=== PATIENT | male | born 1950 | race Two or more races ===

== ENCOUNTER 2019-11-30 00:37 | Inpatient (IN) | payer OTHER ==
[~2019-11-30] VITALS: Ht 175.3 cm; Wt 77.7 kg
[2019-11-30 02:25] LABS: Basophils # (auto) 0.1 10 ^3/uL (0-0.2); Basophils % (auto) 1.2 % (0.0-2.0); Eosinophils # (auto) 0.3 10 ^3/uL (0-0.8); Eosinophils % (auto) 3.9 % (0.0-7.0); Hematocrit 42.3 % (41.0-53.0); Hemoglobin 14.3 g/dL (13.5-17.5); Lymphocytes % (auto) 11.6 % (10.0-50.0); Mean Corpuscular Hemoglobin 31.7 pg (28.0-32.0); Mean Corpuscular Hgb Conc. 33.8 g/dL (32.0-36.0); Mean Corpuscular Volume 93.9 fL (80.0-100.0); Monocytes # (auto) 0.7 10 ^3/uL (0-1.3); Monocytes % (auto) 8.7 % (0.0-12.0); Neutrophils # (auto) 6.2 10 ^3/uL (1.6-8.6); Neutrophils % (auto) 74.6 % (37.0-80.0); Nucleated Red Blood Cells % 0.1 %; Platelet Count (auto) 197 10^3/uL (140-450); Red Cell Distribution Width 12.9 % (11.8-14.3); White Blood Cell 8.3 10^3/uL (4.4-10.8)
[2019-11-30 02:41] LABS: INR 1.06 (0.9-1.15); Partial Thromboplastin Time 29.9 sec (23.64-32.05)
[2019-11-30 02:42] LABS: Albumin 3.4 g/dL (3.4-5.0); Calcium 8.2 mg/dL (8.5-10.1); Magnesium 2.2 mg/dL (1.6-2.6); Potassium 3.9 mmol/L (3.5-5.1)
[2019-11-30 02:47] LABS: BUN/Creatinine Ratio 16.4; Bilirubin, Total 0.4 mg/dL (0.2-1.0); Total Protein 6.6 g/dL (6.4-8.2)
[2019-11-30 04:23] LABS: Urine Bacteria FEW /hpf (None Seen); Urine Blood Negative /uL (Negative); Urine Mucus FEW (None Seen); Urine Specific Gravity 1.009 (1.001-1.035); Urine WBC 1 /hpf (0 - 3)
[2019-11-30] MEDS ORDERED: ASPirin 81 mg TAB PO ONE (08:00)
[2019-11-30] MEDS ORDERED: LORazepam 0.5 MG TAB PO ONE (08:00)
[2019-11-30] MEDS ORDERED: ENOXAPARIN SOD 80 MG/0.8ML SYRINGE SC ONE (09:45)
[2019-11-30] MEDS: SODIUM CHLORIDE 0.9% 1,000 ML IV SCH (13:54)
[2019-11-30] MEDS ORDERED: LORazepam 0.5 MG TAB PO PRN ×2 (14:00)
[2019-11-30] MEDS ORDERED: ALUM & MAG HYDROX-SIMETH LIQ(MAALOX) 30 ML PO ONE (14:00)
[2019-11-30] MEDS ORDERED: DOCUSATE SOD 100 MG CAP PO PRN (14:00)
[2019-11-30] MEDS ORDERED: MORPHINE SULF INJ 2 MG/ML SYRINGE 1ML IV PRN ×3 (14:00)
[2019-11-30] MEDS ORDERED: ACETAMINOPHEN 325 MG TAB PO PRN (14:00)
[2019-11-30] MEDS ORDERED: MORPHINE SULFATE 4 MG/ML SYR/VIAL IV PRN (14:00)
[2019-11-30] MEDS ORDERED: NITROGLYCERIN 0.4 MG SL TAB SL PRN ×3 (14:00)
[2019-11-30] MEDS ORDERED: ONDANSETRON HCL 4 MG/2 ML VIAL IV PRN ×2 (14:00)
[2019-11-30] MEDS ORDERED: HYDROcodone-ACET 5/325MG TAB PO PRN (14:00)
[2019-11-30] MEDS ORDERED: CLOPIDOGREL BISULFATE 75 MG TAB PO ONE (14:00)
[2019-11-30] MEDS ORDERED: DOXYCYCLINE 100MG/250ML 250 ML IV ONE (14:15)
[2019-11-30 15:18] LABS: Alcohol, Urine < 3.0 mg/dL (0-10); Amphetamine Screen, Urine NEGATIVE (NEGATIVE); Barbiturate Scree,Urine NEGATIVE (NEGATIVE); Benzodiazephine Screen, Urine NEGATIVE (NEGATIVE); Cannabinoid Screen, Urine NEGATIVE (NEGATIVE); Cocaine Screen, Urine NEGATIVE (NEGATIVE); Opiate Scree,Urine NEGATIVE (NEGATIVE); Phencyclidine Screen, Urine NEGATIVE (NEGATIVE)
[2019-11-30 15:29] LABS: Cholesterol 187 mg/dL (< 200); Triglycerides 160 mg/dL (< 150)
[2019-11-30 15:31] LABS: HDL Cholesterol 40 mg/dL (40-59); LDL Cholesterol 127 mg/dL (< 100)
[2019-11-30] MEDS ORDERED: LORA1TAB23 PO (15:44)
[2019-11-30] MEDS ORDERED: SERT-275 PO (15:44)
[2019-11-30] MEDS ORDERED: ALBUAER3 IN (15:44)
[2019-11-30] MEDS ORDERED: DONE5TAB31 PO (15:44)
[2019-11-30] MEDS ORDERED: MEMA1TAB5 PO (15:44)
[2019-11-30] MEDS ORDERED: MULT-1018 PO (15:45)
[2019-11-30] MEDS ORDERED: PROBTAB12 PO (15:45)
[2019-11-30 17:00] VITALS: BP 154/91
[2019-11-30 17:51] VITALS: BP 154/91
--- NOTE | 2019-11-30 18:24 | NUR ---
Telemetry admit from [facility] admitted to Telemetry unit after SBAR received. Patient oriented to Leyda haque RN, unit, room, bed, and unit policies regarding patient care and visiting hours. Patient now on continuous telemetry monitoring, tele box # 27 and telemetry reading on arrival to unit is SINUS RHYTHM IN THE 80'S. Patient weighed by bedscale and encouraged to call if they need something. All questions and concerns addressed, patient verbalized understanding.
--- NOTE | 2019-11-30 19:30 | NUR ---
Opening Shift Note Assumed care of patient, awake and alert, ambulatory. No S/S of distress/SOB or pain. Instructed on POC and to be NPO after MN. For Stress test tomorrow, patient verbalized understanding. Instructed to call for assist PRN, bed in lowest position, call light within reach, will continue to monitor for changes Q1hr and PRN.
[2019-11-30 20:00] VITALS: BP 131/87
--- NOTE | 2019-11-30 21:30 | NUR ---
Patient refused to take his meds at this time. Explained the action of meds and why it is being ordered, patient stated, " I will talk to my and my daughter first before taking any medications. Nobody explained to me why I am given this medicines." Asked if this RN can call his daughter Derick but patient stated again, "Don't even bother to call them at this hour, they're probably sleeping, have some respect. I will call them tomorrow." Patient also doesn't want his IV at this time despite explaining the reason for it. Still patient insisted not to be hooked and instructed RN not to bother him and let him sleep. Will continue to monitor
[2019-11-30] MEDS: METOPROLOL TARTRATE 25 MG TAB PO SCH (22:00)
[2019-11-30] MEDS ORDERED: hydrALAZINE HCL 20 MG/ML VL IV PRN (22:00)
[2019-11-30] MEDS: DOXYCYCLINE 100MG/250ML 250 ML IV SCH (22:00)
[2019-11-30] MEDS: ENOXAPARIN SOD 80 MG/0.8ML SYRINGE SC SCH (22:00)
[2019-11-30] MEDS ORDERED: ATORVASTATIN 20 MG TAB PO SCH (22:00)
[2019-11-30] MEDS ORDERED: FUROSEMIDE 20 MG/2 ML VIAL IV ONE (22:00)
--- NOTE | 2019-11-30 23:30 | NUR ---
Patient removed his telebox and attempted to put it back. Patient refused at this time despite explaining the reason of the heart monitor. Patient still refused and uncooperative at this time. Called tele rn staff and made them aware. DIMAS Rich made aware as well
[2019-12-01] VITALS (7 sets, daily range): BP systolic 119–142; BP diastolic 70–89
--- NOTE | 2019-12-01 01:00 | NUR ---
ROUNDING Patient sleeping at this time, respirations even and unlabored, bed in lowest and locked position, will continue to monitor
--- NOTE | 2019-12-01 02:31 | NUR ---
Patient cooperative at this time, put back tele box, running SR on the 60's, will continue to monitor
[2019-12-01] MEDS: SODIUM CHLORIDE 0.9% 1,000 ML IV SCH (03:14)
--- NOTE | 2019-12-01 04:47 | NUR ---
IV insertion IV access obtained, via clean sterile technique by inserting 20 gauge catheter at RFA after [1] attempt(s). IV secured properly. No trauma to site. Patient tolerated well. NOTE: []
[2019-12-01] MEDS ORDERED: FUROSEMIDE 20 MG/2 ML VIAL IV SCH (06:00)
[2019-12-01 06:15] LABS: Basophils # (auto) 0.1 10 ^3/uL (0-0.2); Basophils % (auto) 1.3 % (0.0-2.0); Eosinophils # (auto) 0.3 10 ^3/uL (0-0.8); Eosinophils % (auto) 4.9 % (0.0-7.0); Hematocrit 45.4 % (41.0-53.0); Hemoglobin 15.3 g/dL (13.5-17.5); Lymphocytes # (auto) 0.7 10 ^3/uL (0.4-5.4); Lymphocytes % (auto) 11.2 % (10.0-50.0); Mean Corpuscular Hemoglobin 31.8 pg (28.0-32.0); Mean Corpuscular Hgb Conc. 33.7 g/dL (32.0-36.0); Mean Corpuscular Volume 94.3 fL (80.0-100.0); Monocytes # (auto) 0.6 10 ^3/uL (0-1.3); Monocytes % (auto) 9.1 % (0.0-12.0); Neutrophils # (auto) 4.7 10 ^3/uL (1.6-8.6); Neutrophils % (auto) 73.5 % (37.0-80.0); Nucleated Red Blood Cells % 0.1 %; Platelet Count (auto) 180 10^3/uL (140-450); Red Blood Cells 4.81 10^6/uL (4.5-5.90); Red Cell Distribution Width 12.8 % (11.8-14.3); White Blood Cell 6.4 10^3/uL (4.4-10.8)
--- NOTE | 2019-12-01 06:29 | NUR ---
Patient requested his room to be cleaned because per patient its sticky. Paged [facility] and left a message
[2019-12-01 06:37] LABS: INR 1.06 (0.9-1.15); Partial Thromboplastin Time 31.5 sec (23.64-32.05)
[2019-12-01 06:50] LABS: Potassium 3.9 mmol/L (3.5-5.1)
[2019-12-01 07:00] LABS: Albumin 3.6 g/dL (3.4-5.0); BUN/Creatinine Ratio 16.9; Bilirubin, Total 0.7 mg/dL (0.2-1.0); Calcium 8.7 mg/dL (8.5-10.1); Magnesium 2.4 mg/dL (1.6-2.6); Phosphorus 3.1 mg/dL (2.5-4.90); Total Protein 7.1 g/dL (6.4-8.2)
--- NOTE | 2019-12-01 07:30 | NUR ---
RECEIVED REPORT AND CONTINUATION OF CARE,PATIENT AWAKE,ALERT,ORIENTED,COOPERATIVE,INSTRUCTED ON PLAN OF CARE AND EXPLAIN DISEASE PROCESS,CALL LIGHT WITHIN REACH,PATIENT REMINDED INSTRUCTED TO CALL FOR ASSISTANCE.PATIENT VERBALIZED UNDERSTANDING
--- NOTE | 2019-12-01 08:00 | NUR ---
TO STRESS TEST LAB FOR STRESS TEST VIA WHEELCHAIR
[2019-12-01] MEDS ORDERED: ADENOSINE 65 MG in GIVE UN-DILUTED 0 ML IV STA (08:12)
[2019-12-01] MEDS ORDERED: ASPirin 81 mg TAB PO SCH (10:00)
[2019-12-01] MEDS ORDERED: DOCUSATE SOD 100 MG CAP PO SCH (10:00)
[2019-12-01] MEDS ORDERED: LISINOPRIL 5 MG TAB PO SCH (10:00)
[2019-12-01] MEDS ORDERED: CLOPIDOGREL BISULFATE 75 MG TAB PO SCH (10:00)
--- NOTE | 2019-12-01 10:30 | NUR ---
BACK TO ROOM FROM STRESS TEST,TOLERATED TEST
[2019-12-01] MEDS: METOPROLOL TARTRATE 25 MG TAB PO SCH (11:13)
[2019-12-01] MEDS: DOXYCYCLINE 100MG/250ML 250 ML IV SCH (11:13)
[2019-12-01] MEDS: ENOXAPARIN SOD 80 MG/0.8ML SYRINGE SC SCH (11:15)
--- NOTE | 2019-12-01 16:00 | NUR ---
LACHELLE AGUIRRE-Patricia HERE,SPOKE TO TANG PATIENT DAUGHTER THAT STRESS TEST IS NEGATIVE,JUST AWAITING FOR DR. MUHAMMAD TO READ FINAL REPORT OF ECHOCARDIOGRAM.
--- NOTE | 2019-12-01 16:45 | NUR ---
MD VISIT DR. JENNINGS HERE TO SEE AND EXAMINED PATIENT,RECEIVED ORDER FOR DISCHARGE
--- NOTE | 2019-12-01 18:45 | NUR ---
Discharge instructions given to daughter Derick as ordered. Encourage to follow up with PMD as instructed. All questions and concerns addressed. verbalized understanding. Medication reconciliation form completed and copy given . IV removed x2 with catheter intact, pressure dressing applied. Telemetry unit returned to ICU.
--- NOTE | 2019-12-01 19:31 | NUR ---
Patient taken to vehicle via wheelchair with all personal belongings, accompanied by staff and family member. No distress noted at time of departure.
== END 2019-12-01 19:30 | disposition home or self-care (01) | DRG 309 ==
LOC: EDBD 00:37 → ER 00:42 → TELE 00:43 → TELE-CENTR 15:14
PROVIDERS: ADMIT Hospitalist; ATTEND Internal Medicine
DX: I47.1 Supraventricular tachycardia (principal); N39.0 Urinary tract infection, site not specified; R79.89 Other specified abnormal findings of blood chemistry; E83.51 Hypocalcemia; E78.5 Hyperlipidemia, unspecified; F02.80 Dementia in other diseases classified elsewhere, unspecified severity, without behavioral disturbance, psychotic disturbance, mood disturbance, and anxiety; F17.200 Nicotine dependence, unspecified, uncomplicated; F41.1 Generalized anxiety disorder; G30.9 Alzheimer's disease, unspecified; I10 Essential (primary) hypertension; I25.10 Atherosclerotic heart disease of native coronary artery without angina pectoris; N40.0 Benign prostatic hyperplasia without lower urinary tract symptoms; Z82.0 Family history of epilepsy and other diseases of the nervous system; Z82.49 Family history of ischemic heart disease and other diseases of the circulatory system; Z83.3 Family history of diabetes mellitus; Z88.0 Allergy status to penicillin
CPT/HCPCS: 36415; 71045; 78452; 80053; 80061; 80307; 81001; 83036; 83735; 83880; 84100; 84443; 84484; 85025; 85610; 85730; 87040; 93017; 93306; 96365; 96372; 99291; G0378; J0153; J3490

== ENCOUNTER 2020-03-06 16:55 | Emergency (ER) | payer OTHER ==
[~2020-03-06] VITALS: Ht 175.3 cm; Wt 74.8 kg
[~2020-03-06 16:55] MED LIST: ALBUAER3 IN; DONE5TAB31 PO; LORA1TAB23 PO; MEMA1TAB5 PO; MULT-1018 PO; PROBTAB12 PO; SERT-275 PO
[2020-03-06 21:41] VITALS: BP 165/75
[2020-03-06] MEDS ORDERED: FLUORESCEIN SOD 1 MG TEST STRIP RIGHTEYE ONE (21:45)
[2020-03-06] MEDS ORDERED: TETRACAINE HCL 0.5% OPTH(EYE) SOLN 4ML RIGHTEYE ONE (21:45)
== END 2020-03-06 22:48 | disposition home or self-care (01) ==
LOC: ER 16:55
DX: S05.01XA Injury of conjunctiva and corneal abrasion without foreign body, right eye, initial encounter (principal); H11.31 Conjunctival hemorrhage, right eye; I10 Essential (primary) hypertension; Z88.0 Allergy status to penicillin; X58.XXXA Exposure to other specified factors, initial encounter; Y93.89 Activity, other specified; Y92.89 Other specified places as the place of occurrence of the external cause; Y99.8 Other external cause status
CPT/HCPCS: 65222